=== PATIENT | male | born 2000 | race American Indian/Alaskan Native ===

== ENCOUNTER 2020-10-12 11:45 | Inpatient (IN) | payer SELFPAY ==
[2020-10-12] MEDS ORDERED: ONDANSETRON 4 MG/2 ML INJ IV ONE (12:19)
[2020-10-12] MEDS ORDERED: SODIUM CHLORIDE 0.9% 1000 ML 1,000 ML IV ONE (12:19)
--- NOTE | 2020-10-12 12:32 | Emergency Department Report ---
ED N/V/D HPI - General Chief complaint: Nausea/Vomiting/Diarrhea Stated complaint: NAUSEA/VOMITING Time Seen by Provider: 10/12/20 12:18 Source: patient, EMS Mode of arrival: Stretcher Limitations: No Limitations - History of Present Illness Initial comments: 19-year-old male, history of insulin dependent diabetes, presents to the ED with nausea vomiting x2 days. Patient denies any associated fever, diarrhea, or abdominal pain. Patient states he has been compliant with his insulin. Patient does not know what his blood glucose has been as he does not check it at home. Patient denies any sick contacts. Denies any known contact with anyone who has tested positive for COVID-19. Patient given Zofran 4 mg and 1 L bolus of normal saline by EMS prior to ED arrival. MD complaint: nausea, vomiting -: days(s) (2) Description of Vomiting: food contents Associated Abdominal Pain: No Severity: moderate Quality: other (Painless) Consistency: constant Improves with: none Worsens with: eating Associated Symptoms: denies: cough, fever/chills, headaches, shortness of breath - Related Data Allergies Allergy/AdvReac Type Severity Reaction Status Date / Time No Known Allergies Allergy Unverified 10/12/20 12:41 ED Review of Systems ROS: Stated complaint: NAUSEA/VOMITING Other details as noted in HPI Comment: All other systems reviewed and negative Constitutional: denies: chills, fever Respiratory: denies: cough Gastrointestinal: nausea, vomiting. denies: abdominal pain, diarrhea ED Past Medical Hx - Past Medical History Hx Diabetes: Yes - Surgical History Past Surgical History?: No - Social History Smoking Status: Current Every Day Smoker Substance Use Type: None ED Physical Exam - General Limitations: No Limitations General appearance: alert, in no apparent distress - Head Head exam: Present: atraumatic, normocephalic - Eye Eye exam: Present: normal appearance, EOMI - ENT ENT exam: Present: mucous membranes dry - Neck Neck exam: Present: normal inspection - Respiratory Respiratory exam: Present: normal lung sounds bilaterally. Absent: respiratory distress - Cardiovascular Cardiovascular Exam: Present: normal rhythm, tachycardia - GI/Abdominal GI/Abdominal exam: Present: soft. Absent: distended, tenderness - Extremities Exam Extremities exam: Present: normal inspection - Neurological Exam Neurological exam: Present: alert, oriented X3 - Psychiatric Psychiatric exam: Present: normal affect, normal mood - Skin Skin exam: Present: warm, dry, intact, normal color ED Course Vital Signs 10/12/20 10/12/20 10/12/20 12:05 13:48 14:00 Temperature 97.8 F Pulse Rate 104 H 103 H Respiratory 18 19 Rate Blood Pressure 117/53 117/53 117/53 O2 Sat by Pulse 100 100 97 Oximetry 10/12/20 10/12/20 10/12/20 14:16 14:30 14:46 Temperature Pulse Rate 102 H 102 H 94 H Respiratory 16 18 16 Rate Blood Pressure 130/57 139/63 144/70 O2 Sat by Pulse 99 99 100 Oximetry 10/12/20 10/12/20 10/12/20 15:00 15:16 15:30 Temperature Pulse Rate 96 H 95 H 89 Respiratory 16 15 15 Rate Blood Pressure 136/71 122/69 131/79 O2 Sat by Pulse 100 100 100 Oximetry 10/12/20 10/12/20 15:46 16:56 Temperature Pulse Rate 91 H 86 Respiratory 17 16 Rate Blood Pressure 120/59 O2 Sat by Pulse 100 100 Oximetry ED Medical Decision Making - Lab Data Result diagrams: 10/12/20 12:35 10/12/20 17:16 - Medical Decision Making 19-year-old male presents to ED in DKA. He reports nausea and vomiting over the last 2 days. He reports compliance with his insulin. He denies any fever, abdo amira pain, cough, diarrhea. Glucose is 290 with bicarb of 5 and anion gap of 31. Insulin drip initiated. Patient will be admitted to hospitalist, Dr. Mustafa, for further management. - Differential Diagnosis Gastroenteritis, DKA, pancreatitis Critical Care Time: Yes Critical care time in (mins) excluding proc time.: 35 Critical care attestation.: If time is entered above; I have spent that time in minutes in the direct care of this critically ill patient, excluding procedure time. Critical Care Time: 35 min ED Disposition Clinical Impression: DKA (diabetic ketoacidosis) Disposition: OP ADMIT IP TO THIS HOSP Is pt being admited?: Yes Condition: Stable Time of Disposition: 13:46
[2020-10-12 13:07] LABS: Albumin 4.5 g/dL (3.9-5); BUN/Creatinine Ratio 7; Bilirubin,Direct 0.2 mg/dL (0-0.2); Blood Urea Nitrogen 7 mg/dL (9-20); Calcium 8.7 mg/dL (8.4-10.2); Hemolysis Index 95
[2020-10-12 13:21] LABS: Hematocrit 53.7 % (35.5-45.6); Hemoglobin 17.8 gm/dl (11.8-15.2); Mean Corpuscular HGB Conc 33 % (32-34); Mean Corpuscular Volume 101 fl (84-94); Platelet Count 156 K/mm3 (140-440); Red Blood Count 5.31 M/mm3 (3.65-5.03); Red Cell Distribution Width 14.9 % (13.2-15.2)
[2020-10-12 13:23] LABS: Alanine Aminotransferase < 5 units/L (7-56)
[2020-10-12] MEDS ORDERED: INSULIN REGULAR, HUMAN 100 UNITS in SODIUM CHLORIDE 0.9% 99 ML IV SCH (14:00)
[2020-10-12 14:15] LABS: BUN/Creatinine Ratio 7; Blood Urea Nitrogen 7 mg/dL (9-20); Calcium 9.2 mg/dL (8.4-10.2); Hemolysis Index 77
[2020-10-12] MEDS ORDERED: SODIUM CHLORIDE 0.9% 1000 ML 2,000 ML IV ONE (14:15)
[2020-10-12 14:33] LABS: Bilirubin,Urine NEG (Negative); Blood,Urine NEG (Negative); Color,Urine Straw (Yellow); Mucus,Urine FEW /HPF; RBC,Urine < 1.0 /HPF (0.0-6.0); Urobilinogen,Urine < 2.0 mg/dL (<2.0)
[2020-10-12 14:50] LABS: Total Cells Counted 100
[2020-10-12 14:51] LABS: Platelet Estimate Consistent w Auto; Target Cells Few
[2020-10-12] MEDS: HYDROmorphone 1 MG/1 ML INJ IV ONE ×2 (15:00→15:10)
[2020-10-12 15:59] LABS: BUN/Creatinine Ratio 6; Blood Urea Nitrogen 6 mg/dL (9-20); Calcium 8.6 mg/dL (8.4-10.2); Hemolysis Index 147
[2020-10-12] MEDS ORDERED: PROMETHAZINE 25 MG RECT SUPP PR PRN (17:23)
[2020-10-12] MEDS ORDERED: ACETAMINOPHEN 325 MG TAB PO PRN (17:23)
[2020-10-12] MEDS ORDERED: HYDROmorphone 1 MG/1 ML INJ IV PRN (17:23)
[2020-10-12] MEDS ORDERED: ONDANSETRON 4 MG/2 ML INJ IV PRN (17:23)
[2020-10-12] MEDS ORDERED: METOCLOPRAMIDE 10 MG/2 ML INJ IV PRN (17:23)
[2020-10-12] MEDS ORDERED: SODIUM CHLORIDE 0.9% 1000 ML 1,000 ML IV SCH (17:30)
[2020-10-12 17:46] LABS: BUN/Creatinine Ratio 6; Blood Urea Nitrogen 6 mg/dL (9-20); Calcium 8.8 mg/dL (8.4-10.2); Hemolysis Index 59
[2020-10-12] MEDS ORDERED: D5NS W/KCL 20 MEQ 20 MEQ/1,000 ML BAG IV SCH (18:00)
[2020-10-12] MEDS: D5W/0.45% NACL/KCL 20 MEQ 20 MEQ/1,000 ML BAG IV SCH (18:27)
[2020-10-12 19:58] LABS: BUN/Creatinine Ratio 5; Blood Urea Nitrogen 5 mg/dL (9-20); Calcium 8.8 mg/dL (8.4-10.2); Hemolysis Index 32
[2020-10-12 21:40] LABS: BUN/Creatinine Ratio 6; Blood Urea Nitrogen 5 mg/dL (9-20); Calcium 8.6 mg/dL (8.4-10.2); Hemolysis Index 27
[2020-10-12] MEDS: FAMOTIDINE 20 MG/2 ML INJ IV SCH (22:43)
[2020-10-13] MEDS: D5W/0.45% NACL/KCL 20 MEQ 20 MEQ/1,000 ML BAG IV SCH (01:52)
--- NOTE | 2020-10-13 06:37 | History and Physical Report ---
History of Present Illness Date of examination: 10/12/20 Date of admission: 10/12/20 13:47 Chief complaint: Nausea and vomiting for 2 days History of present illness: 19-year-old male with history of type 1 diabetes comes in for nausea and vomiting of 2 days duration. Patient says that he is taking insulin but is not clear on the dosages. Patient apparently takes 10 units of insulin before each meal and is not on a long-acting insulin. Patient is a poor historian. Patient does not check his blood glucose levels. No sick contacts no exposure to coronavirus. The main complaint is nausea vomiting for 2 days and feeling very weak. And dehydrated. No exacerbating or relieving factors exacerbating factors not taking insulin properly and not checking his blood sugars. 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 no seizures Skin no rash no itching Psychiatric no depression no homicidal or suicidal tendencies Hematologic no lymphedema or bruising Endocrine no polydipsia no polyuria no cold intolerance no heat intolerance Medications and Allergies Allergies Allergy/AdvReac Type Severity Reaction Status Date / Time No Known Allergies Allergy Unverified 10/12/20 12:41 Active Meds: Active Medications Acetaminophen (Acetaminophen 325 Mg Tab) 650 mg PO Q4H PRN PRN Reason: Pain MILD(1-3)/Fever >100.5/WORKMAN Last Admin: 10/13/20 03:42 Dose: 650 mg Documented by: Famotidine (Famotidine 20 Mg/2 Ml Inj) 20 mg IV BID DIPESH Last Admin: 10/12/20 22:43 Dose: 20 mg Documented by: Hydromorphone HCl (Hydromorphone 1 Mg/1 Ml Inj) 0.5 mg IV Q3H PRN PRN Reason: Pain , Severe (7-10) Last Admin: 10/12/20 18:10 Dose: 0.5 mg Documented by: Insulin Human Regular 100 (units/ Sodium Chloride) 100 mls @ 1 mls/hr IV TITR DIPESH; Protocol Last Titration: 10/13/20 06:07 Dose: 2 units/hr, 2 mls/hr Documented by: Sodium Chloride (Nacl 0.9% 1000 Ml) 1,000 mls @ 125 mls/hr IV DIRECT DIPESH Potassium Chloride/Dextrose/Sod Cl (D5w/0.45% Nacl/Kcl 20 Meq) 20 meq in 1,000 mls @ 125 mls/hr IV DIRECT DIPESH Last Admin: 10/13/20 01:52 Dose: 125 mls/hr Documented by: Metoclopramide HCl (Metoclopramide 10 Mg/2 Ml Inj) 10 mg IV Q6H PRN PRN Reason: Nausea And Vomiting Ondansetron HCl (Ondansetron 4 Mg/2 Ml Inj) 4 mg IV Q3H PRN PRN Reason: Nausea And Vomiting Promethazine HCl (Promethazine 25 Mg Rect Supp) 25 mg VA Q6H PRN PRN Reason: N/V IF NPO AND NO IV ACCESS Sodium Chloride (Sodium Chloride 0.9% 10 Ml Flush Syringe) 10 ml IV BID DIPESH Last Admin: 10/12/20 22:44 Dose: 10 ml Documented by: Sodium Chloride (Sodium Chloride 0.9% 10 Ml Flush Syringe) 10 ml IV PRN PRN PRN Reason: LINE FLUSH Exam - Constitutional Vitals: Temp Pulse Resp BP Pulse Ox 98 F 79 13 133/70 96 10/13/20 03:20 10/13/20 06:00 10/13/20 06:00 10/13/20 06:00 10/13/20 06:00 General appearance: Present: mild distress, well-nourished - EENT Eyes: Present: PERRL ENT: hearing intact, clear oral mucosa, other (Tongue midline) - Neck Neck: Present: supple, normal ROM - Respiratory Respiratory effort: normal Respiratory: bilateral: CTA - Cardiovascular Heart rate: 78 Rhythm: regular Heart Sounds: Present: S1 & S2. Absent: rub, click - Extremities Extremities: pulses symmetrical, No edema Peripheral Pulses: within normal limits - Abdominal General gastrointestinal: Present: soft, non-tender, non-distended, normal bowel sounds Male genitourinary: Present: normal - Integumentary Integumentary: Present: clear, warm, dry - Musculoskeletal Musculoskeletal: strength equal bilaterally, generalized weakness - Psychiatric Psychiatric: appropriate mood/affect, intact judgment & insight - Neurologic Neurologic: CNII-XII intact, moves all extremities - Allied Health Allied health notes reviewed: nursing, case management Results - Labs CBC & Chem 7: 10/12/20 12:35 10/12/20 20:58 Labs: Laboratory Last Values WBC 10.8 K/mm3 (4.5-11.0) 10/12/20 12:35 RBC 5.31 M/mm3 (3.65-5.03) H 10/12/20 12:35 Hgb 17.8 gm/dl (11.8-15.2) H 10/12/20 12:35 Hct 53.7 % (35.5-45.6) H 10/12/20 12:35 MCV 101 fl (84-94) H 10/12/20 12:35 MCH 34 pg (28-32) H 10/12/20 12:35 MCHC 33 % (32-34) 10/12/20 12:35 RDW 14.9 % (13.2-15.2) 10/12/20 12:35 Plt Count 156 K/mm3 (140-440) 10/12/20 12:35 Lymph % (Auto) Youth Development Specialist 10/12/20 12:35 Mayes % (Auto) Youth Development Specialist 10/12/20 12:35 Eos % (Auto) Youth Development Specialist 10/12/20 12:35 Baso % (Auto) Youth Development Specialist 10/12/20 12:35 Lymph # (Auto) Youth Development Specialist 10/12/20 12:35 Mayes # (Auto) Youth Development Specialist 10/12/20 12:35 Eos # (Auto) Youth Development Specialist 10/12/20 12:35 Baso # (Auto) Youth Development Specialist 10/12/20 12:35 Add Manual Diff Complete 10/12/20 12:35 Total Counted 100 10/12/20 12:35 Seg Neutrophils % Youth Development Specialist 10/12/20 12:35 Seg Neuts % (Manual) 90.0 % (40.0-70.0) H 10/12/20 12:35 Lymphocytes % (Manual) 4.0 % (13.4-35.0) L 10/12/20 12:35 Monocytes % (Manual) 4.0 % (0.0-7.3) 10/12/20 12:35 Metamyelocytes % 2.0 % 10/12/20 12:35 Nucleated RBC % Not Reportable 10/12/20 12:35 Seg Neutrophils # Youth Development Specialist 10/12/20 12:35 Seg Neutrophils # Man 9.7 K/mm3 (1.8-7.7) H 10/12/20 12:35 Band Neutrophils # 0.0 K/mm3 10/12/20 12:35 Lymphocytes # (Manual) 0.4 K/mm3 (1.2-5.4) L 10/12/20 12:35 Abs React Lymphs (Man) 0.0 K/mm3 10/12/20 12:35 Monocytes # (Manual) 0.4 K/mm3 (0.0-0.8) 10/12/20 12:35 Eosinophils # (Manual) 0.0 K/mm3 (0.0-0.4) 10/12/20 12:35 Basophils # (Manual) 0.0 K/mm3 (0.0-0.1) 10/12/20 12:35 Metamyelocytes # 0.2 K/mm3 10/12/20 12:35 Myelocytes # 0.0 K/mm3 10/12/20 12:35 Promyelocytes # 0.0 K/mm3 10/12/20 12:35 Blast Cells # 0.0 K/mm3 10/12/20 12:35 WBC Morphology Not Reportable 10/12/20 12:35 WBC Morphology TNR 10/12/20 12:35 Hypersegmented Neuts Not Reportable 10/12/20 12:35 Hyposegmented Neuts Not Reportable 10/12/20 12:35 Hypogranular Neuts Not Reportable 10/12/20 12:35 Smudge Cells Not Reportable 10/12/20 12:35 Toxic Granulation Not Reportable 10/12/20 12:35 Toxic Vacuolation Not Reportable 10/12/20 12:35 Dohle Bodies Not Reportable 10/12/20 12:35 Pelger-Huet Anomaly Not Reportable 10/12/20 12:35 Kishor Rods Not Reportable 10/12/20 12:35 Platelet Estimate Consistent w auto 10/12/20 12:35 Clumped Platelets Not Reportable 10/12/20 12:35 Plt Clumps, EDTA Not Reportable 10/12/20 12:35 Large Platelets Not Reportable 10/12/20 12:35 Giant Platelets Not Reportable 10/12/20 12:35 Platelet Satelliting Not Reportable 10/12/20 12:35 Plt Morphology Comment Not Reportable 10/12/20 12:35 RBC Morphology Not Reportable 10/12/20 12:35 Dimorphic RBCs Not Reportable 10/12/20 12:35 Polychromasia Not Reportable 10/12/20 12:35 Hypochromasia Not Reportable 10/12/20 12:35 Poikilocytosis Not Reportable 10/12/20 12:35 Anisocytosis Not Reportable 10/12/20 12:35 Microcytosis Not Reportable 10/12/20 12:35 Macrocytosis Not Reportable 10/12/20 12:35 Spherocytes Not Reportable 10/12/20 12:35 Pappenheimer Bodies Not Reportable 10/12/20 12:35 Sickle Cells Not Reportable 10/12/20 12:35 Target Cells Few 10/12/20 12:35 Tear Drop Cells Not Reportable 10/12/20 12:35 Ovalocytes Not Reportable 10/12/20 12:35 Helmet Cells Not Reportable 10/12/20 12:35 [place] Bodies Not Reportable 10/12/20 12:35 [place] Rings Not Reportable 10/12/20 12:35 Alyssa Cells Not Reportable 10/12/20 12:35 Bite Cells Not Reportable 10/12/20 12:35 Crenated Cell Not Reportable 10/12/20 12:35 Elliptocytes Not Reportable 10/12/20 12:35 Acanthocytes (Spur) Not Reportable 10/12/20 12:35 Rouleaux Not Reportable 10/12/20 12:35 Hemoglobin C Crystals Not Reportable 10/12/20 12:35 Schistocytes Not Reportable 10/12/20 12:35 Malaria parasites Not Reportable 10/12/20 12:35 Ricardo Bodies Not Reportable 10/12/20 12:35 Hem Pathologist Commnt No 10/12/20 12:35 VBG pH 6.959 (7.320-7.420) L* 10/12/20 12:35 Sodium 128 mmol/L (137-145) L 10/12/20 20:58 Potassium 3.0 mmol/L (3.6-5.0) L 10/12/20 20:58 Chloride 102.2 mmol/L (98-107) 10/12/20 20:58 Carbon Dioxide 11 mmol/L (22-30) L 10/12/20 20:58 Anion Gap 18 mmol/L 10/12/20 20:58 BUN 5 mg/dL (9-20) L 10/12/20 20:58 Creatinine 0.8 mg/dL (0.8-1.3) 10/12/20 20:58 Estimated GFR > 60 ml/min 10/12/20 20:58 BUN/Creatinine Ratio 6 % 10/12/20 20:58 Glucose 202 mg/dL (75-100) H 10/12/20 20:58 POC Glucose 139 mg/dL (70-105) H 10/13/20 03:02 Calcium 8.6 mg/dL (8.4-10.2) 10/12/20 20:58 Phosphorus 3.60 mg/dL (2.5-4.5) 10/12/20 13:32 Magnesium 1.90 mg/dL (1.7-2.3) 10/12/20 13:32 Total Bilirubin 0.20 mg/dL (0.1-1.2) 10/12/20 12:35 Direct Bilirubin 0.2 mg/dL (0-0.2) 10/12/20 12:35 Indirect Bilirubin 0.0 mg/dL 10/12/20 12:35 AST < 5 units/L (5-40) L 10/12/20 12:35 ALT < 5 units/L (7-56) L 10/12/20 12:35 Alkaline Phosphatase 153 units/L (35-129) H 10/12/20 12:35 Total Protein 7.4 g/dL (6.3-8.2) 10/12/20 12:35 Albumin 4.5 g/dL (3.9-5) 10/12/20 12:35 Albumin/Globulin Ratio 1.6 % 10/12/20 12:35 Lipase 22 units/L (13-60) 10/12/20 12:35 Urine Color Straw (Yellow) 10/12/20 14:12 Urine Turbidity Clear (Clear) 10/12/20 14:12 Urine pH 5.0 (5.0-7.0) 10/12/20 14:12 Ur Specific Noti 1.022 (1.003-1.030) 10/12/20 14:12 Urine Protein 100 mg/dl mg/dL (Negative) 10/12/20 14:12 Urine Glucose (UA) >=500 mg/dL (Negative) 10/12/20 14:12 Urine Ketones 80 mg/dL (Negative) 10/12/20 14:12 Urine Blood Neg (Negative) 10/12/20 14:12 Urine Nitrite Neg (Negative) 10/12/20 14:12 Urine Bilirubin Neg (Negative) 10/12/20 14:12 Urine Urobilinogen < 2.0 mg/dL (<2.0) 10/12/20 14:12 Ur Leukocyte Esterase Neg (Negative) 10/12/20 14:12 Urine WBC (Auto) 1.0 /HPF (0.0-6.0) 10/12/20 14:12 Urine RBC (Auto) < 1.0 /HPF (0.0-6.0) 10/12/20 14:12 U Epithel Cells (Auto) < 1.0 /HPF (0-13.0) 10/12/20 14:12 Uric Acid Crystals Few 10/12/20 14:12 Urine Mucus Few /HPF 10/12/20 14:12 Short CBC 10/12/20 Range/Units 12:35 WBC 10.8 (4.5-11.0) K/mm3 Hgb 17.8 H (11.8-15.2) gm/dl Hct 53.7 H (35.5-45.6) % Plt Count 156 (140-440) K/mm3 BMP 10/12/20 10/12/20 10/12/20 12:35 13:32 15:20 Sodium 131 L 134 L 130 L Potassium 4.1 4.2 4.2 Chloride 98.9 98.5 101.7 Carbon Dioxide 5 L* 7 L* 5 L* BUN 7 L 7 L 6 L Creatinine 1.0 1.0 1.0 Glucose 290 H 273 H 243 H Calcium 8.7 9.2 8.6 10/12/20 10/12/20 10/12/20 17:16 19:27 20:58 Sodium 131 L 131 L 128 L Potassium 3.9 3.2 L 3.0 L Chloride 102.5 102.4 102.2 Carbon Dioxide 8 L* 11 L 11 L BUN 6 L 5 L 5 L Creatinine 1.0 1.0 0.8 Glucose 189 H 173 H 202 H Calcium 8.8 8.8 8.6 Liver Function 10/12/20 Range/Units 12:35 Total Bilirubin 0.20 (0.1-1.2) mg/dL Direct Bilirubin 0.2 (0-0.2) mg/dL AST < 5 L (5-40) units/L ALT < 5 L (7-56) units/L Alkaline Phosphatase 153 H (35-129) units/L Albumin 4.5 (3.9-5) g/dL Urine 10/12/20 Range/Units 14:12 Urine Color Straw (Yellow) Urine pH 5.0 (5.0-7.0) Ur Specific Noti 1.022 (1.003-1.030) Urine Protein 100 mg/dl (Negative) mg/dL Urine Glucose (UA) >=500 (Negative) mg/dL Braun/IV: Voiding Method Urinal Assessment and Plan Assessment and plan: Critical care statement The high probability OF a clinically significant sudden or life-threatening deterioration of the cardiorespiratory system and endocrine system required my full and direct attention, intervention and postoperative management. The aggregate critical care time was 40 minutes. The time is in addition to time spent performing reported procedures but includes the followin: Data review and interpretation 2: Patient assessment and monitoring of vital signs 3: Documentation 4:: Medication orders and management Advance Directives: Yes (Full code) VTE prophylaxis?: Chemical Plan of care discussed with patient/family: Yes - Patient Problems (1) DKA (diabetic ketoacidosis) Current Visit: Yes Status: Acute Qualifiers: Diabetes mellitus type: type 1 Diabetes mellitus complication detail: without coma Qualified Code(s): E10.10 - Type 1 diabetes mellitus with ketoacidosis without coma Plan to address problem: Patient is in DKA Severe metabolic acidosis Bicarb of 5 pH of 6.959 IV insulin and DKA protocol IV fluids Supplement potassium when potassium was down which is expected hyponatremia should correct by itself with lowering of the blood glucose levels (2) Metabolic acidosis Current Visit: Yes Status: Acute Plan to address problem: Severe Bicarb given (3) Hyponatremia Current Visit: Yes Status: Acute Plan to address problem: Should correct with correction of blood glucose levels IV normal saline in the meantime (4) Polycythemia due to fall in plasma volume Current Visit: Yes Status: Acute Plan to address problem: Due to fall in plasma volume Should correct with IV fluids especially normal saline (5) DVT prophylaxis Current Visit: Yes Status: Acute Plan to address problem: On heparin and GI prophylaxis
[2020-10-13 06:41] LABS: BUN/Creatinine Ratio 6; Blood Urea Nitrogen 5 mg/dL (9-20); Calcium 9.9 mg/dL (8.4-10.2); Hemolysis Index 18
[2020-10-13] MEDS ORDERED: INSULIN REGULAR, HUMAN 100 UNITS in SODIUM CHLORIDE 0.9% 99 ML IV SCH (07:00)
[2020-10-13] MEDS: POTASSIUM CHLORIDE 10 MEQ 10 MEQ/100 ML BAG IV SCH ×4 (07:58→11:14)
[2020-10-13] MEDS: FAMOTIDINE 20 MG/2 ML INJ IV SCH (09:43)
[2020-10-13] MEDS ORDERED: DEXTROSE 50% IN WATER (25GM) 50 ML SYRINGE IV PRN (10:05)
--- NOTE | 2020-10-13 10:24 | Progress Note ---
Assessment and Plan - Patient Problems (1) Hypokalemia Current Visit: Yes Status: Acute Plan to address problem: We will need to correct potassium. Did not fully correct with correction of DKA. Stable for transfer to floor. (2) DKA (diabetic ketoacidosis) Current Visit: Yes Status: Acute Qualifiers: Diabetes mellitus type: type 1 Diabetes mellitus complication detail: without coma Qualified Code(s): E10.10 - Type 1 diabetes mellitus with ketoacidosis without coma Plan to address problem: Patient gap is closed. Continue aggressive correction of electrolytes. Co ntinue aggressive IV volume replacement. Most importantly patient requires education. Understanding patient young age not very involved in his health at this particular time. Compliance is the utmost importance. Will place patient on long-acting insulin as well as insulin with meals. Should be stable for discharge in a.m. (3) Hyponatremia Current Visit: Yes Status: Acute Plan to address problem: Corrected. Continues to (4) Metabolic acidosis Current Visit: Yes Status: Acute Plan to address problem: Resolving after insulin drip. Subjective Date of service: 10/13/20 Principal diagnosis: DKA Interval history: 19-year-old male with history of insulin-dependent diabetes presented with irretractable nausea vomiting found to be in DKA. Patient poor insight into his disease. Did not know what medications he was taking. Was not taking his blood sugar and also was missing insulin. Patient admitted to the ICU placed on insulin drip. Now gap is closed electrolytes have been corrected except for potassium and his volume status has corrected. Patient feels better. Able to eat can tolerate p.o. intake diabetic diet. Will transfer patient to regular floor Objective - Constitutional Vitals: Vital Signs - 12hr 10/12/20 10/12/20 10/13/20 23:00 23:23 00:00 Temperature 99.2 F Pulse Rate 85 83 Pulse Rate [ 86 From Monitor] Respiratory 13 22 Rate Blood Pressure 138/74 114/55 O2 Sat by Pulse 97 98 Oximetry 10/13/20 10/13/20 10/13/20 00:06 01:00 02:00 Temperature Pulse Rate 85 85 84 Pulse Rate [ From Monitor] Respiratory 26 H 14 13 Rate Blood Pressure 114/55 133/68 133/68 O2 Sat by Pulse 99 100 98 Oximetry 10/13/20 10/13/20 10/13/20 03:00 03:20 04:00 Temperature 98 F Pulse Rate 83 81 Pulse Rate [ 83 From Monitor] Respiratory 13 13 Rate Blood Pressure 140/71 136/71 O2 Sat by Pulse 97 98 Oximetry 10/13/20 10/13/20 10/13/20 05:00 06:00 07:00 Temperature Pulse Rate 76 79 79 Pulse Rate [ From Monitor] Respiratory 15 13 12 Rate Blood Pressure 130/63 133/70 139/69 O2 Sat by Pulse 96 96 Oximetry 10/13/20 10/13/20 10/13/20 08:00 08:11 08:27 Temperature 98.1 F Pulse Rate 80 83 Pulse Rate [ 83 From Monitor] Respiratory 13 14 Rate Blood Pressure 134/70 O2 Sat by Pulse 98 99 Oximetry General appearance: Present: no acute distress, well-nourished - EENT Eyes: PERRL, EOM intact ENT: hearing intact, clear oral mucosa Ears: bilateral: normal - Neck Neck: supple, normal ROM - Respiratory Respiratory effort: normal Respiratory: bilateral: CTA - Breasts Breasts: normal - Cardiovascular Rhythm: regular Heart Sounds: Present: S1 & S2. Absent: gallop, rub Extremities: pulses intact, No edema, normal color, Full ROM - Gastrointestinal General gastrointestinal: Present: soft, non-tender, non-distended, normal bowel sounds - Genitourinary Male genitourinary: normal - Integumentary Integumentary: clear, warm, dry - Musculoskeletal Musculoskeletal: 1, strength equal bilaterally - Neurologic Neurologic: moves all extremities - Psychiatric Psychiatric: memory intact, appropriate mood/affect, intact judgment & insight - Labs CBC & Chem 7: 10/12/20 12:35 10/13/20 05:21 Labs: Abnormal lab results 10/12/20 10/12/20 10/12/20 Range/Units 12:35 12:35 12:35 RBC 5.31 H (3.65-5.03) M/mm3 Hgb 17.8 H (11.8-15.2) gm/dl Hct 53.7 H (35.5-45.6) % MCV 101 H (84-94) fl MCH 34 H (28-32) pg Seg Neuts % (Manual) 90.0 H (40.0-70.0) % Lymphocytes % (Manual) 4.0 L (13.4-35.0) % Seg Neutrophils # Man 9.7 H (1.8-7.7) K/mm3 Lymphocytes # (Manual) 0.4 L (1.2-5.4) K/mm3 VBG pH 6.959 L* (7.320-7.420) Sodium 131 L (137-145) mmol/L Potassium (3.6-5.0) mmol/L Carbon Dioxide 5 L* (22-30) mmol/L BUN 7 L (9-20) mg/dL Glucose 290 H (75-100) mg/dL POC Glucose (70-105) mg/dL AST < 5 L (5-40) units/L ALT < 5 L (7-56) units/L Alkaline Phosphatase 153 H (35-129) units/L 10/12/20 10/12/20 10/12/20 Range/Units 13:32 13:59 15:20 RBC (3.65-5.03) M/mm3 Hgb (11.8-15.2) gm/dl Hct (35.5-45.6) % MCV (84-94) fl MCH (28-32) pg Seg Neuts % (Manual) (40.0-70.0) % Lymphocytes % (Manual) (13.4-35.0) % Seg Neutrophils # Man (1.8-7.7) K/mm3 Lymphocytes # (Manual) (1.2-5.4) K/mm3 VBG pH (7.320-7.420) Sodium 134 L 130 L (137-145) mmol/L Potassium (3.6-5.0) mmol/L Carbon Dioxide 7 L* 5 L* (22-30) mmol/L BUN 7 L 6 L (9-20) mg/dL Glucose 273 H 243 H (75-100) mg/dL POC Glucose 242 H (70-105) mg/dL AST (5-40) units/L ALT (7-56) units/L Alkaline Phosphatase (35-129) units/L 10/12/20 10/12/20 10/12/20 Range/Units 16:22 17:16 17:46 RBC (3.65-5.03) M/mm3 Hgb (11.8-15.2) gm/dl Hct (35.5-45.6) % MCV (84-94) fl MCH (28-32) pg Seg Neuts % (Manual) (40.0-70.0) % Lymphocytes % (Manual) (13.4-35.0) % Seg Neutrophils # Man (1.8-7.7) K/mm3 Lymphocytes # (Manual) (1.2-5.4) K/mm3 VBG pH (7.320-7.420) Sodium 131 L (137-145) mmol/L Potassium (3.6-5.0) mmol/L Carbon Dioxide 8 L* (22-30) mmol/L BUN 6 L (9-20) mg/dL Glucose 189 H (75-100) mg/dL POC Glucose 185 H 159 H (70-105) mg/dL AST (5-40) units/L ALT (7-56) units/L Alkaline Phosphatase (35-129) units/L 10/12/20 10/12/20 10/12/20 Range/Units 18:22 19:27 19:53 RBC (3.65-5.03) M/mm3 Hgb (11.8-15.2) gm/dl Hct (35.5-45.6) % MCV (84-94) fl MCH (28-32) pg Seg Neuts % (Manual) (40.0-70.0) % Lymphocytes % (Manual) (13.4-35.0) % Seg Neutrophils # Man (1.8-7.7) K/mm3 Lymphocytes # (Manual) (1.2-5.4) K/mm3 VBG pH (7.320-7.420) Sodium 131 L (137-145) mmol/L Potassium 3.2 L (3.6-5.0) mmol/L Carbon Dioxide 11 L (22-30) mmol/L BUN 5 L (9-20) mg/dL Glucose 173 H (75-100) mg/dL POC Glucose 166 H 185 H (70-105) mg/dL AST (5-40) units/L ALT (7-56) units/L Alkaline Phosphatase (35-129) units/L 10/12/20 10/12/20 10/12/20 Range/Units 20:58 21:03 21:54 RBC (3.65-5.03) M/mm3 Hgb (11.8-15.2) gm/dl Hct (35.5-45.6) % MCV (84-94) fl MCH (28-32) pg Seg Neuts % (Manual) (40.0-70.0) % Lymphocytes % (Manual) (13.4-35.0) % Seg Neutrophils # Man (1.8-7.7) K/mm3 Lymphocytes # (Manual) (1.2-5.4) K/mm3 VBG pH (7.320-7.420) Sodium 128 L (137-145) mmol/L Potassium 3.0 L (3.6-5.0) mmol/L Carbon Dioxide 11 L (22-30) mmol/L BUN 5 L (9-20) mg/dL Glucose 202 H (75-100) mg/dL POC Glucose 185 H 186 H (70-105) mg/dL AST (5-40) units/L ALT (7-56) units/L Alkaline Phosphatase (35-129) units/L 10/12/20 10/13/20 10/13/20 Range/Units 23:03 00:18 01:05 RBC (3.65-5.03) M/mm3 Hgb (11.8-15.2) gm/dl Hct (35.5-45.6) % MCV (84-94) fl MCH (28-32) pg Seg Neuts % (Manual) (40.0-70.0) % Lymphocytes % (Manual) (13.4-35.0) % Seg Neutrophils # Man (1.8-7.7) K/mm3 Lymphocytes # (Manual) (1.2-5.4) K/mm3 VBG pH (7.320-7.420) Sodium (137-145) mmol/L Potassium (3.6-5.0) mmol/L Carbon Dioxide (22-30) mmol/L BUN (9-20) mg/dL Glucose (75-100) mg/dL POC Glucose 184 H 163 H 157 H (70-105) mg/dL AST (5-40) units/L ALT (7-56) units/L Alkaline Phosphatase (35-129) units/L 10/13/20 10/13/20 10/13/20 Range/Units 02:07 03:02 04:18 RBC (3.65-5.03) M/mm3 Hgb (11.8-15.2) gm/dl Hct (35.5-45.6) % MCV (84-94) fl MCH (28-32) pg Seg Neuts % (Manual) (40.0-70.0) % Lymphocytes % (Manual) (13.4-35.0) % Seg Neutrophils # Man (1.8-7.7) K/mm3 Lymphocytes # (Manual) (1.2-5.4) K/mm3 VBG pH (7.320-7.420) Sodium (137-145) mmol/L Potassium (3.6-5.0) mmol/L Carbon Dioxide (22-30) mmol/L BUN (9-20) mg/dL Glucose (75-100) mg/dL POC Glucose 163 H 139 H 147 H (70-105) mg/dL AST (5-40) units/L ALT (7-56) units/L Alkaline Phosphatase (35-129) units/L 10/13/20 10/13/20 10/13/20 Range/Units 05:05 05:21 06:05 RBC (3.65-5.03) M/mm3 Hgb (11.8-15.2) gm/dl Hct (35.5-45.6) % MCV (84-94) fl MCH (28-32) pg Seg Neuts % (Manual) (40.0-70.0) % Lymphocytes % (Manual) (13.4-35.0) % Seg Neutrophils # Man (1.8-7.7) K/mm3 Lymphocytes # (Manual) (1.2-5.4) K/mm3 VBG pH (7.320-7.420) Sodium 133 L (137-145) mmol/L Potassium 2.6 L* (3.6-5.0) mmol/L Carbon Dioxide 18 L D (22-30) mmol/L BUN 5 L (9-20) mg/dL Glucose 121 H (75-100) mg/dL POC Glucose 128 H 123 H (70-105) mg/dL AST (5-40) units/L ALT (7-56) units/L Alkaline Phosphatase (35-129) units/L 10/13/20 10/13/20 Range/Units 07:21 09:40 RBC (3.65-5.03) M/mm3 Hgb (11.8-15.2) gm/dl Hct (35.5-45.6) % MCV (84-94) fl MCH (28-32) pg Seg Neuts % (Manual) (40.0-70.0) % Lymphocytes % (Manual) (13.4-35.0) % Seg Neutrophils # Man (1.8-7.7) K/mm3 Lymphocytes # (Manual) (1.2-5.4) K/mm3 VBG pH (7.320-7.420) Sodium (137-145) mmol/L Potassium (3.6-5.0) mmol/L Carbon Dioxide (22-30) mmol/L BUN (9-20) mg/dL Glucose (75-100) mg/dL POC Glucose 115 H 113 H (70-105) mg/dL AST (5-40) units/L ALT (7-56) units/L Alkaline Phosphatase (35-129) units/L
[2020-10-13] MEDS ORDERED: POTASSIUM CHLORIDE ER 20 MEQ TAB PO NR (11:00)
[2020-10-13] MEDS: INSULIN LISPRO 100 UNIT/ML SUB-Q SCH ×3 (11:12→23:33)
[2020-10-13] MEDS ORDERED: INSULIN LISPRO 100 UNIT/ML SUB-Q SCH ×2 (11:30→22:00)
[2020-10-13] MEDS ORDERED: ACETAMINOPHEN 325 MG TAB PO PRN (11:36)
[2020-10-13] MEDS: ACETAMINOPHEN 325 MG/10.15 ML ORAL LIQD UNIT DOSE PO PRN (11:48)
[2020-10-13] MEDS: INSULIN REGULAR, HUMAN 100 UNITS/1 ML SUB-Q SCH ×3 (11:49→23:33)
[2020-10-13] MEDS ORDERED: POTASSIUM CHLORIDE 20 MEQ PACKET FEEDTUBE ONE (12:00)
[2020-10-13] MEDS ORDERED: INSULIN GLARGINE 100 UNITS/ML SUB-Q SCH ×2 (22:00)
[2020-10-14] MEDS: ACETAMINOPHEN 325 MG/10.15 ML ORAL LIQD UNIT DOSE PO PRN ×2 (00:24→12:06)
[2020-10-14] MEDS: INSULIN REGULAR, HUMAN 100 UNITS/1 ML SUB-Q SCH (06:40)
[2020-10-14] MEDS: INSULIN LISPRO 100 UNIT/ML SUB-Q SCH (07:56)
[2020-10-14 08:48] LABS: Alanine Aminotransferase 7 units/L (7-56); Albumin 3.8 g/dL (3.9-5); BUN/Creatinine Ratio 8; Blood Urea Nitrogen 6 mg/dL (9-20); Calcium 9.7 mg/dL (8.4-10.2); Hemolysis Index 13
[2020-10-14] MEDS ORDERED: POTASSIUM CHLORIDE ER 20 MEQ TAB PO SCH (10:00)
--- NOTE | 2020-10-14 11:19 | Discharge Summary ---
Providers - Providers Date of Admission: 10/12/20 13:47 Date of discharge: 10/14/20 Attending physician: KEISHA SANTANA 10/13/20 10:09 Consult to Dietitian/Nutrition [CONS] Routine Physician Instructions: Reason For Exam: Reason for Consult: Diet education Primary care physician: ACADEMY DIRECTOR Hospitalization Condition: Stable Hospital course: 19-year-old with some initial noncompliance and misunderstanding of how to give insulin and what type of insulin he was using. Patient does not really have a primary care physician and he is based out of [facility] and recently moved here. Will benefit from a primary care physician. Patient was admitted found to be in DKA. Was placed in ICU DKA protocol. Gap closed and insulin was titrated up to gain patient adequately controlled. Patient be placed on Lantus 15 units nightly and then short acting insulin regular 8 units 3 times daily with meals. This is done fairly well for him patient can titrate up further as outpatient with his primary care physician Disposition: TO HOME OR SELFCARE - Discharge Diagnoses (1) Hypokalemia Status: Acute Comment: Resolved we will give an additional 20 of potassium to complete 2 days at home. (2) DKA (diabetic ketoacidosis) Status: Acute Qualifiers: Diabetes mellitus type: type 1 Diabetes mellitus complication detail: [facility] coma Qualified Code(s): E10.10 - Type 1 diabetes mellitus with ketoacidosis without coma Comment: 70/30 insulin 20 units twice daily titrate accordingly. Follow-up primary care physician in 3 to 5 days. (3) Hyponatremia Status: Resolved (4) Metabolic acidosis Status: Resolved Core Measure Documentation - Palliative Care Palliative Care/ Comfort Measures: Not Applicable - Core Measures Any of the following diagnoses?: none Exam - Constitutional Vitals: Temp Pulse Resp BP Pulse Ox 98.5 F 72 18 118/66 100 10/14/20 07:34 10/14/20 10:00 10/14/20 10:00 10/14/20 07:34 10/14/20 10:00 General appearance: Present: no acute distress, well-nourished - EENT Eyes: Present: PERRL ENT: hearing intact, clear oral mucosa - Neck Neck: Present: supple, normal ROM - Respiratory Respiratory effort: normal Respiratory: bilateral: CTA - Cardiovascular Heart Sounds: Present: S1 & S2. Absent: rub, click - Extremities Extremities: pulses symmetrical, No edema Peripheral Pulses: within normal limits - Abdominal General gastrointestinal: Present: soft, non-tender, non-distended, normal bowel sounds Male genitourinary: Present: normal - Integumentary Integumentary: Present: clear, warm, dry - Musculoskeletal Musculoskeletal: gait normal, strength equal bilaterally - Psychiatric Psychiatric: appropriate mood/affect, intact judgment & insight - Neurologic Neurologic: CNII-XII intact, moves all extremities Plan Activity: no restrictions Weight Bearing Status: Full Weight Bearing Diet: diabetic Follow up with: PRIMARY CARE, [Primary Care Provider] - 3-5 Days Prescriptions: Insulin Regular, Human [HumuLIN R] 8 units SUB-Q TIDWM #30 units Potassium Chloride [K-Dur] 40 meq PO QDAY #1 tablet Insulin Glargine [Lantus VIAL] 15 units SUB-Q QHS #1 units
[2020-10-14] MEDS ORDERED: INSULIN REGULAR, HUMAN 100 UNITS/1 ML IV ONE (11:41)
[2020-10-14] MEDS ORDERED: INSULIN REGULAR, HUMAN 100 UNITS/1 ML SUB-Q SCH (12:00)
[2020-10-14 12:42] VITALS: BP 111/71
== END 2020-10-14 13:10 | disposition home or self-care (01) | DRG 638 ==
LOC: ED 11:45 → CC1 13:47 → 4A 10-13 12:52
PROVIDERS: ADMIT Internal Medicine; ATTEND Internal Medicine
DX: E11.10 Type 2 diabetes mellitus with ketoacidosis without coma (principal); E87.1 Hypo-osmolality and hyponatremia; E87.2 Acidosis; F17.200 Nicotine dependence, unspecified, uncomplicated; E87.6 Hypokalemia; D75.1 Secondary polycythemia; Z79.4 Long term (current) use of insulin; Z79.899 Other long term (current) drug therapy
CPT/HCPCS: 36415; 80048; 80053; 80076; 81001; 82805; 82962; 83690; 83735; 84100; 85007; 85025; 96365; 96366; 96367; 96375; 96376; G0378; J1170; J1815; J3480; J7030